=== PATIENT | male | born 1975 | race Two or more races ===

== ENCOUNTER 2019-06-19 09:22 | Emergency (ER) | payer BC, MEDICAID, OTHER, SELFPAY ==
[~2019-06-19] VITALS: Ht 167.6 cm; Wt 88.9 kg
[2019-06-19 09:25] VITALS: BP 161/89
[2019-06-19] MEDS ORDERED: HYDROmorphone 1 MG/ML, 1ML INJ IM ONE (10:00)
[2019-06-19] MEDS ORDERED: HYDROmorphone 1 MG/ML, 1ML INJ ONE (10:01)
--- NOTE | 2019-06-19 10:06 | NUR ---
PT MEDICATED PER MAY. WILL MONITOR THEN DC ORDERED
--- NOTE | 2019-06-19 10:40 | NUR ---
PT REQUESTING TO SEE PROVIDER PRIOR TO DC
== END 2019-06-19 10:59 | disposition home or self-care (01) ==
LOC: ED 09:51
DX: M10.9 Gout, unspecified (principal); M13.0 Polyarthritis, unspecified; M79.641 Pain in right hand; M25.572 Pain in left ankle and joints of left foot; F17.290 Nicotine dependence, other tobacco product, uncomplicated
CPT/HCPCS: 96372; 99283; J1170

== ENCOUNTER 2019-07-27 08:00 | Outpatient (CLI) | payer SELFPAY | END 2019-07-27 23:59 | disposition home or self-care (01) | LOC: OUT 08:00 → EDSTATUS 08-05 12:30 | PROVIDERS: ATTEND Urology | DX: Z11.59 Encounter for screening for other viral diseases (principal) | CPT/HCPCS: C9803; U0001 ==

== ENCOUNTER 2020-04-01 16:11 | Emergency (ER) | payer SELFPAY ==
[~2020-04-01] VITALS: Ht 167.6 cm; Wt 95.0 kg
--- NOTE | 2020-04-01 18:21 | NUR ---
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
[2020-04-01] MEDS ORDERED: COLCHICINE 0.6 MG CAPSULE ONE ×2 (18:54→20:54)
[2020-04-01] MEDS ORDERED: COLCHICINE 0.6 MG CAPSULE PO ONE ×2 (19:00→20:30)
--- NOTE | 2020-04-01 19:07 | NUR ---
PT MEDICATED PER MAR
[2020-04-01 19:10] LABS: BASOPHILS % (AUTO) 0 % (0-1); EOSINOPHILS % (AUTO) 1 % (1-7); LYMPHOCYTES % (AUTO) 12 % (22-44); MEAN CORPUSCULAR HEMOGLOBIN 30.2 pg (27.5-34.5); MEAN CORPUSCULAR HGB CONC 34.5 g/dL (33.2-36.2); MEAN PLATELET VOLUME 7.7 fL (7.4-10.4); MONOCYTES % (AUTO) 3 % (2-9); NEUTROPHILS % (AUTO) 83 % (42-75); PLATELET COUNT 364 x10^3/uL (130-400); RED BLOOD COUNT 4.82 x10^6/uL (4.38-5.82); RED CELL DISTRIBUTION WIDTH 15.1 % (9.4-14.8)
[2020-04-01 19:21] LABS: ANION GAP 6 mmol/L (5-15); CALCIUM 8.8 mg/dL (8.5-10.1); CHLORIDE 106 mmol/L (98-107)
[2020-04-01 19:22] LABS: CREATININE 1.07 mg/dL (0.7-1.3)
[2020-04-01 19:29] LABS: MD SCAN
[2020-04-01 19:53] VITALS: BP 142/98
[2020-04-01] MEDS ORDERED: HYDROmorphone 1 MG/ML, 1ML INJ ONE (19:56)
[2020-04-01] MEDS ORDERED: HYDROmorphone 1 MG/ML, 1ML INJ IM ONE ×2 (20:00)
== END 2020-04-01 21:01 | disposition home or self-care (01) ==
LOC: ED 19:25
DX: M10.062 Idiopathic gout, left knee (principal); M10.061 Idiopathic gout, right knee; M13.0 Polyarthritis, unspecified; F17.200 Nicotine dependence, unspecified, uncomplicated; Z76.0 Encounter for issue of repeat prescription; F17.210 Nicotine dependence, cigarettes, uncomplicated
CPT/HCPCS: 36415; 80048; 85025; 96372; 99284; 99406; J1170